=== PATIENT | male | born 1980 | race Caucasian/White ===

== ENCOUNTER 2017-10-01 14:42 | Inpatient (IN) | payer OTHER ==
[2017-10-01 16:54] VITALS: BMI 22.3
--- NOTE | 2017-10-01 19:39 | HP ---
COWS - Scale Resting Pulse: 0= [place] 80 or Below Sweatin=Flushed/Facial Moisture Restless Observation: 3= Extraneous Movement Pupil Size: 2= Moderately Dilated Bone or Joint Aches: 2= Severe Diffuse Aches Runny Nose/ Eye Tearin= Runny Nose/Eyes GI Upset > 30mins: 3= Vomiting/Diarrhea Tremor Observation: 2= Slight Tremor Visible Yawning Observation: 2= >3x During Session Anxiety or Irritability: 2=Irritable/Anxious Goose Flesh Skin: 0=Smooth Skin COWS Score: 20 CIWA Score - CIWA Score Nausea/Vomitin Muscle Tremors: 3 Anxiety: 3 Agitation: 3 Paroxysmal Sweats: 1-Minimal Palms Moist Orientation: 0-Oriented Tacttile Disturbances: 1-Very Mild Itch/Numbness Auditory Disturbances: 1-Very Mild Visual Disturbances: 0-None Headache: 2-Mild CIWA-Ar Total Score: 17 Admission ROS BHS - HPI Chief Complaint: i need help to stop using heroi,xanax,cocaine Allergies/Adverse Reactions: Allergies Allergy/AdvReac Type Severity Reaction Status Date / Time No Known Allergies Allergy Verified 10/01/17 18:41 History of Present Illness: this 37 years old male with heroin,xanax,cocaine dependence,seeking detox, withdrawal symptom,last treatment [facility] in 07/24 not completed nicotine dependence anxiety,depression,insomnia longest period of sobriety 7 years weight loss Exam Limitations: No Limitations - Ebola screening Have you been sick,other than usual withdrawal symptoms: No - Review of Systems Constitutional: Chills, Loss of Appetite, Malaise, Night Sweats, Changes in sleep, Weakness, Unintentional Wgt. Loss EENT: reports: Tearing, Nose Congestion Respiratory: reports: No Symptoms reported Cardiac: reports: No Symptoms Reported GI: reports: Diarrhea, Nausea, Vomiting, Abdominal cramping : reports: No Symptoms Reported Musculoskeletal: reports: Back Pain, Joint Pain, Muscle Pain, Joint Stiffness Integumentary: reports: Dryness Neuro: reports: Headache, Tremors Endocrine: reports: No Symptoms Reported Hematology: reports: No Symptoms Reported Psychiatric: reports: No Sypmtoms Reported, Judgement Intact, Mood/Affect Appropiate, Orientated x3, Anxious, Depressed Patient History - Patient Medical History Hx Anemia: No Hx Asthma: No Hx Chronic Obstructive Pulmonary Disease (COPD): No Hx Cancer: No Hx Cardiac Disorders: No Hx Hypertension: No Hx Hypercholesterolemia: No Hx Pacemaker: No HX Cerebrovascular Accident: No Hx Seizures: No Hx Diabetes: No Hx Gastrointestinal Disorders: No Hx Liver Disease: No Hx Genitourinary Disorders: No Hx Sexually Transmitted Disorders: No Hx Renal Disease (ESRD): No Hx Thyroid Disease: No Hx Human Immunodeficiency Virus (HIV): No (last 2017 negative) Hx Hepatitis C: No Hx Depression: Yes (anxiety) Hx Suicide Attempt: No Hx Bipolar Disorder: No Hx Schizophrenia: No Other Medical History: no suicidal,no homicidal - Patient Surgical History Past Surgical History: No Hx Neurologic Surgery: No Hx Cataract Extraction: No Hx Cardiac Surgery: No Hx Lung Surgery: No Hx Breast Surgery: No Hx Breast Biopsy: No Hx Abdominal Surgery: No Hx Appendectomy: No Hx Cholecystectomy: No Hx Genitourinary Surgery: No Hx Section: No Hx Orthopedic Surgery: No Anesthesia Reaction: No - PPD History Previous Implant?: Yes Documented Results: Negative w/o proof Implanted On Prior R Admission?: No PPD to be Administered?: Yes - Smoking Cessation Smoking history: Current every day smoker Have you smoked in the past 12 months: Yes Aproximately how many cigarettes per day: 20 Hx Chewing Tobacco Use: No Initiated information on smoking cessation: Yes 'Breaking Loose' booklet given: 10/01/17 - Substance & Tx. History Hx Alcohol Use: No Hx Substance Use: Yes Substance Use Type: Cocaine, Heroin, Tranquilizers - Substances Abused Heroin Route: Injection Frequency: Daily Amount used: 10 BAGS DAILY Age of first use: 23 Date of Last Use: 10/01/17 Cocaine Route: Injection Frequency: Daily Amount used: 10 BAGS DAILY Age of first use: 23 Date of Last Use: 10/01/17 Alprazolam (Xanax) Route: Oral Frequency: 3-6 times per week Amount used: 2 MG Age of first use: 27 Date of Last Use: 10/01/17 Family Disease History - Family Disease History Family History: Denies Admission Physical Exam BHS - Vital Signs Vital Signs: Vital Signs - 24 hr 10/01/17 16:52 Temperature 98.6 F Pulse Rate 74 Respiratory 18 Rate Blood Pressure 115/73 - Physical General Appearance: Yes: Moderate Distress, Irritable, Sweating, Anxious HEENTM: Yes: Normal ENT Inspection, FRANC[place], Pharynx Normal Respiratory: Yes: Within Normal Limits, Lungs Clear, Normal Breath Sounds Neck: Yes: Within Normal Limits Breast: Yes: Within Normal Limits Cardiology: Yes: Within Normal Limits, Regular Rhythm, Regular Rate, S1, S2 Abdominal: Yes: Within Normal Limits, Normal Bowel Sounds, Non Tender, Soft Genitourinary: Yes: Within Normal Limits Back: Yes: Within Normal Limits, Normal Inspection, Muscle Spasm Musculoskeletal: Yes: full range of Motion, Back pain, Muscle Pain Extremities: Yes: Within Normal Limits, Normal Range of Motion, Tremors Neurological: Yes: Within Normal Limits, 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 intact, Fully Oriented, Alert, Motor Strength 5/5 Integumentary: Yes: Dry, Track Petersen (tattooes), Other (cellulitis left leg) Lymphatic: Yes: Within Normal Limits - Diagnostic (1) Opioid dependence with withdrawal Current Visit: Yes Status: Acute (2) Cocaine dependence Current Visit: Yes Status: Chronic (3) Uncomplicated sedative, hypnotic or anxiolytic withdrawal Current Visit: Yes Status: Acute (4) Weight loss Current Visit: Yes Status: Acute (5) Nicotine dependence Current Visit: Yes Status: Chronic (6) Insomnia secondary to depression with anxiety Current Visit: Yes Status: Acute (7) Cellulitis of left leg Current Visit: Yes Status: Acute Cleared for Admission [facility] - Detox or Rehab [facility] Level of Care: Medically Managed Detox Regimen/Protocol: Methadone [facility] Breath Alcohol Content Breath Alcohol Content: 0 Urine Drug Screen - Results Drug Screen Negative: No Urine Drug Screen Results: THC-Marijuana, HERMINIA-Cocaine, OPI-Opiates, MTD- Methadone
[2017-10-01] MEDS ORDERED: IBUPROFEN 400 MG TABLET (FP) PO PRN (19:50)
[2017-10-01] MEDS ORDERED: hydrOXYzine PAMOATE 50 MG CAPSULE (FP) PO PRN (19:50)
[2017-10-01] MEDS ORDERED: P-EPHED 60MG/TRIPROLIDI 2.5MG TABLET PO PRN (19:50)
[2017-10-01] MEDS ORDERED: MAGNESIUM CITRATE 300 ML BOTTLE PO PRN (19:50)
[2017-10-01] MEDS ORDERED: METHADONE HCL 10 MG TABLET (FOR DETOX USE ONLY) PO ONE ×2 (19:50→23:00)
[2017-10-01] MEDS ORDERED: guaiFENesin/D-METHORPHAN HB 10 ML UNIT-DOSE CUPS PO PRN (19:50)
[2017-10-01] MEDS ORDERED: MAG HYDROX/AL HYDROX/SIMETH 30 ML UNIT-DOSE CUP PO PRN (19:50)
[2017-10-01] MEDS ORDERED: LOPERAMIDE HCL 2 MG CAPSULE PO PRN (19:50)
[2017-10-01] MEDS ORDERED: MAGNESIUM HYDROX 2400MG/30ML ORAL SUSPENSION 30 ML CUP PO PRN (19:50)
[2017-10-01] MEDS ORDERED: ACETAMINOPHEN 325 MG TABLET (FP) PO PRN (19:50)
[2017-10-01] MEDS ORDERED: MENTHOL/PHENOL 1 EACH UD MM PRN (19:50)
[2017-10-01] MEDS: SULFAMETHOXAZOLE/TRIMETHOPRIM 800MG/160MG D.S. TABLET PO SCH (21:12)
[2017-10-01] MEDS: diazePAM 5 MG TABLET PO PRN (21:12)
[2017-10-01] MEDS: THIAMINE HCL 100 MG TABLET (FP) PO SCH (21:12)
[2017-10-01] MEDS ORDERED: MELATONIN 5 MG TABLETS PO PRN (22:00)
[2017-10-01 22:37] LABS: URINE APPEARANCE SLCLOUDY; URINE COLOR AMBER; URINE GLUCOSE (UA) NEGATIVE (NEGATIVE); URINE KETONE 1+ (NEGATIVE); URINE LEUK ESTERASE NEGATIVE (NEGATIVE); URINE NITRITE NEGATIVE (NEGATIVE); URINE UROBILINOGEN 4.0 E.U/dl mg/dL (0.2-1.0)
[2017-10-01 22:39] LABS: URINE PROTEIN 1+ (NEGATIVE)
[2017-10-01 23:09] LABS: URINE BACTERIA MODERATE /hpf (NONE SEEN); URINE MUCUS MANY
[2017-10-02] MEDS: diazePAM 5 MG TABLET PO PRN ×3 (07:33→22:21)
[2017-10-02 09:26] LABS: HEMOGLOBIN 11.7 GM/dL (11.7-16.9); MCH 27.7 pg (25.7-33.7); MCHC 32.5 g/dl (32.0-35.9); MEAN CELL VOLUME 85.1 fl (80-96); MEAN PLT VOLUME 8.2 fl (7.5-11.1); PLATELET COUNT 256 K/MM3 (134-434); RBC 4.23 M/mm3 (4.00-5.60); RDW 14.6 % (11.9-15.9); WHITE BLOOD COUNT 4.2 K/mm3 (4.0-10.0)
[2017-10-02] MEDS: PRENATAL VITAMINS W/ FOLIC ACID TABLET (FP) PO SCH (09:30)
[2017-10-02] MEDS: SULFAMETHOXAZOLE/TRIMETHOPRIM 800MG/160MG D.S. TABLET PO SCH ×2 (09:32→22:21)
[2017-10-02 09:42] LABS: CHLORIDE 106 mmol/L (98-107); POTASSIUM 3.9 mmol/L (3.5-5.1); SODIUM 141 mmol/L (136-145)
[2017-10-02 09:54] LABS: ALBUMIN 3.3 g/dl (3.4-5.0); ALK PHOS 82 U/L (45-117); ANION GAP 6 (8-16); BILIRUBIN,TOTAL 0.4 mg/dL (0.2-1.0); BLOOD UREA NITROGEN 13 mg/dL (7-18); CALCIUM 8.6 mg/dL (8.5-10.1); CO2 29 mmol/L (21-32); CREATININE 0.8 mg/dL (0.7-1.3); GLUCOSE,RANDOM 88 mg/dL (74-106); SGOT/AST 20 U/L (15-37); SGPT/ALT 19 U/L (12-78)
[2017-10-02] MEDS ORDERED: METHADONE HCL 10 MG TABLET (FOR DETOX USE ONLY) PO ONE (10:00)
--- NOTE | 2017-10-02 10:06 | EKG ---
Test Reason : Blood Pressure : / mmHG Vent. Rate : 065 BPM Atrial Rate : 065 BPM P-R Int : 138 ms QRS Dur : 088 ms QT Int : 426 ms P-R-T Axes : 060 065 044 degrees QTc Int : 443 ms NORMAL SINUS RHYTHM NORMAL ECG NO PREVIOUS ECGS AVAILABLE Confirmed by ADDIE CURTIS, IRAIDA ([id number]) on 10/02/2017 10:05:50 AM Referred By: Fredy Lacy Confirmed By:IRAIDA REAL MD
--- NOTE | 2017-10-02 17:14 | PN ---
BHS COWS - Scale Resting Pulse: 0= [place] 80 or Below Sweatin= Chills/Flushing Restless Observation: 3= Extraneous Movement Pupil Size: 1= Pupils >than Normal Bone or Joint Aches: 2= Severe Diffuse Aches Runny Nose/ Eye Tearin= Runny Nose/Eyes GI Upset > 30mins: 2= Nausea/Diarrhea Tremor Observation of Outstretched Hands: 2= Slight Tremor Visible Yawning Observation: 1= 1-2x During Session Anxiety or Irritability: 2=Irritable/Anxious Goose Flesh Skin: 0=Smooth Skin COWS Score: 16 S Progress Note (SOAP) Subjective: Sweating, tremor, chills, anxious Objective: 10/02/17 17:10 Last Vital Signs Temp Pulse Resp BP Pulse Ox 98.2 F 66 18 111/51 10/02/17 15:00 10/02/17 15:00 10/02/17 15:00 10/02/17 15:00 Laboratory Tests 10/01/17 10/02/17 10/02/17 22:20 07:45 07:45 WBC 4.2 RBC 4.23 Hgb 11.7 Hct 36.0 MCV 85.1 MCH 27.7 MCHC 32.5 RDW 14.6 Plt Count 256 MPV 8.2 Sodium 141 Potassium 3.9 Chloride 106 Carbon Dioxide 29 Anion Gap 6 L BUN 13 Creatinine 0.8 Creat Clearance w eGFR > 60 Random Glucose 88 Calcium 8.6 Total Bilirubin 0.4 AST 20 ALT 19 Alkaline Phosphatase 82 Total Protein 7.0 Albumin 3.3 L Urine Color [place] Urine Appearance Slcloudy Urine pH 5.0 Ur Specific [place] 1.033 Urine Protein 1+ H Urine Glucose (UA) Negative Urine Ketones 1+ H Urine Blood Negative Urine Nitrite Negative Urine Bilirubin 2.0 Urine Urobilinogen 4.0 e.u/dl Ur Leukocyte Esterase Negative Urine WBC (Auto) 2 Urine RBC (Auto) 10 Urine Bacteria Moderate Urine Mucus Many RPR Titer HIV 1&2 Antibody Screen HIV P24 Antigen 10/02/17 10/02/17 07:45 07:45 WBC RBC Hgb Hct MCV MCH MCHC RDW Plt Count MPV Sodium Potassium Chloride Carbon Dioxide Anion Gap BUN Creatinine Creat Clearance w eGFR Random Glucose Calcium Total Bilirubin AST ALT Alkaline Phosphatase Total Protein Albumin Urine Color Urine Appearance Urine pH Ur Specific [place] Urine Protein Urine Glucose (UA) Urine Ketones Urine Blood Urine Nitrite Urine Bilirubin Urine Urobilinogen Ur Leukocyte Esterase Urine WBC (Auto) Urine RBC (Auto) Urine Bacteria Urine Mucus RPR Titer Nonreactive HIV 1&2 Antibody Screen Negative HIV P24 Antigen Negative Labs reviewed: UA abnormal Assessment: 10/02/17 17:12 Withdrawal symptoms Noted with abnormal UA Plan: Continue detox Abnormal UA: encouraged PO water hydration, repeat UA
[2017-10-02] MEDS: THIAMINE HCL 100 MG TABLET (FP) PO SCH (22:21)
[2017-10-03] MEDS: diazePAM 5 MG TABLET PO PRN ×3 (07:19→22:20)
[2017-10-03] MEDS ORDERED: METHADONE HCL 5 MG TABLET (FOR DETOX USE ONLY) PO ONE (10:00)
[2017-10-03] MEDS: PRENATAL VITAMINS W/ FOLIC ACID TABLET (FP) PO SCH (10:27)
[2017-10-03] MEDS: SULFAMETHOXAZOLE/TRIMETHOPRIM 800MG/160MG D.S. TABLET PO SCH ×2 (10:27→22:19)
--- NOTE | 2017-10-03 17:48 | PN ---
S CIWA - CIWA Score Nausea/Vomitin Muscle Tremors: 3 Anxiety: 3 Agitation: 4-Moderately Restless Paroxysmal Sweats: 3 Orientation: 0-Oriented Tacttile Disturbances: 0-None Auditory Disturbances: 0-None Visual Disturbances: 0-None Headache: 0-None Present CIWA-Ar Total Score: 16 BHS Progress Note (SOAP) Subjective: sleep disturbance sweats shakes Objective: 10/03/17 17:47 A & O x 3 Anxious Vital Signs Temperature 98.1 F 10/03/17 14:15 Pulse Rate 77 10/03/17 14:15 Respiratory Rate 18 10/03/17 14:15 Blood Pressure 104/57 10/03/17 14:15 O2 Sat by Pulse Oximetry (%) Assessment: 10/03/17 17:47 withdrawal sx Plan: continue detox continue increased hydration UA in a.m
--- NOTE | 2017-10-03 17:55 | PN ---
BHS COWS - Scale Resting Pulse: 0= [place] 80 or Below Sweatin=Flushed/Facial Moisture Restless Observation: 3= Extraneous Movement Pupil Size: 0= Normal to Room Light Bone or Joint Aches: 1= Mild Discomfort Runny Nose/ Eye Tearin= Nasal Congestion GI Upset > 30mins: 0= None Tremor Observation of Outstretched Hands: 2= Slight Tremor Visible Yawning Observation: 0= None Anxiety or Irritability: 2=Irritable/Anxious Goose Flesh Skin: 0=Smooth Skin COWS Score: 11
[2017-10-03] MEDS: THIAMINE HCL 100 MG TABLET (FP) PO SCH (22:19)
[2017-10-04 09:14] VITALS: BP 111/73; PULSE 72; TEMP 98.1
[2017-10-04] MEDS: PRENATAL VITAMINS W/ FOLIC ACID TABLET (FP) PO SCH (09:33)
[2017-10-04] MEDS: diazePAM 5 MG TABLET PO PRN (09:33)
[2017-10-04] MEDS: SULFAMETHOXAZOLE/TRIMETHOPRIM 800MG/160MG D.S. TABLET PO SCH (09:33)
[2017-10-04] MEDS ORDERED: METHADONE HCL 5 MG TABLET (FOR DETOX USE ONLY) PO ONE (10:00)
--- NOTE | 2017-10-04 17:03 | PN ---
BHS Progress Note (SOAP) Subjective: PATIENT DECLINED TO SPEAK TO MEDICAL PROVIDER TODAY, STATING THAT HE IS LEAVING DETOX UNIT AMA. Objective: 10/04/17 17:03 Vital Signs Temperature 98.1 F 10/04/17 09:13 Pulse Rate 72 10/04/17 09:13 Respiratory Rate 16 10/04/17 09:13 Blood Pressure 111/73 10/04/17 09:13 O2 Sat by Pulse Oximetry (%) Laboratory Tests 10/01/17 10/02/17 10/02/17 22:20 07:45 07:45 WBC 4.2 RBC 4.23 Hgb 11.7 Hct 36.0 MCV 85.1 MCH 27.7 MCHC 32.5 RDW 14.6 Plt Count 256 MPV 8.2 Sodium 141 Potassium 3.9 Chloride 106 Carbon Dioxide 29 Anion Gap 6 L BUN 13 Creatinine 0.8 Creat Clearance w eGFR > 60 Random Glucose 88 Calcium 8.6 Total Bilirubin 0.4 AST 20 ALT 19 Alkaline Phosphatase 82 Total Protein 7.0 Albumin 3.3 L Urine Color [place] Urine Appearance Slcloudy Urine pH 5.0 Ur Specific [place] 1.033 Urine Protein 1+ H Urine Glucose (UA) Negative Urine Ketones 1+ H Urine Blood Negative Urine Nitrite Negative Urine Bilirubin 2.0 Urine Urobilinogen 4.0 e.u/dl Ur Leukocyte Esterase Negative Urine WBC (Auto) 2 Urine RBC (Auto) 10 Urine Bacteria Moderate Urine Mucus Many RPR Titer HIV 1&2 Antibody Screen HIV P24 Antigen 10/02/17 10/02/17 07:45 07:45 WBC RBC Hgb Hct MCV MCH MCHC RDW Plt Count MPV Sodium Potassium Chloride Carbon Dioxide Anion Gap BUN Creatinine Creat Clearance w eGFR Random Glucose Calcium Total Bilirubin AST ALT Alkaline Phosphatase Total Protein Albumin Urine Color Urine Appearance Urine pH Ur Specific [place] Urine Protein Urine Glucose (UA) Urine Ketones Urine Blood Urine Nitrite Urine Bilirubin Urine Urobilinogen Ur Leukocyte Esterase Urine WBC (Auto) Urine RBC (Auto) Urine Bacteria Urine Mucus RPR Titer Nonreactive HIV 1&2 Antibody Screen Negative HIV P24 Antigen Negative LABS NOTED. Assessment: 10/04/17 17:03 WITHDRAWAL SYMPTOMS. Plan: CONTINUE DETOX.
--- NOTE | 2017-10-04 17:09 | DS ---
[facility] Detox Discharge Summary Admission Date: 10/01/17 Discharge Date: 10/04/17 - History Present History: Alcohol Dependence, Cocaine Dependence, Sedative Dependence Additional Comments: PATIENT DOES NOT WISH TO STAY TO COMPLETE DETOX REGIMEN. PATIENT DECLINED TO SPEAK WITH MEDICAL PROVIDER AT ALL PRIOR TO LEAVING UNIT. Pertinent Past History: Depression, Nicotine Dependence, Weight Loss, Cellulitis of left leg, Insomnia, Anxiety. - Physical Exam Results Vital Signs: Vital Signs Temperature 98.1 F 10/04/17 09:13 Pulse Rate 72 10/04/17 09:13 Respiratory Rate 16 10/04/17 09:13 Blood Pressure 111/73 10/04/17 09:13 O2 Sat by Pulse Oximetry (%) Pertinent Admission Physical Exam Findings: WITHDRAWAL SYMPTOMS. Laboratory Tests 10/01/17 10/02/17 10/02/17 22:20 07:45 07:45 WBC 4.2 RBC 4.23 Hgb 11.7 Hct 36.0 MCV 85.1 MCH 27.7 MCHC 32.5 RDW 14.6 Plt Count 256 MPV 8.2 Sodium 141 Potassium 3.9 Chloride 106 Carbon Dioxide 29 Anion Gap 6 L BUN 13 Creatinine 0.8 Creat Clearance w eGFR > 60 Random Glucose 88 Calcium 8.6 Total Bilirubin 0.4 AST 20 ALT 19 Alkaline Phosphatase 82 Total Protein 7.0 Albumin 3.3 L Urine Color [place] Urine Appearance Slcloudy Urine pH 5.0 Ur Specific [place] 1.033 Urine Protein 1+ H Urine Glucose (UA) Negative Urine Ketones 1+ H Urine Blood Negative Urine Nitrite Negative Urine Bilirubin 2.0 Urine Urobilinogen 4.0 e.u/dl Ur Leukocyte Esterase Negative Urine WBC (Auto) 2 Urine RBC (Auto) 10 Urine Bacteria Moderate Urine Mucus Many RPR Titer HIV 1&2 Antibody Screen HIV P24 Antigen 10/02/17 10/02/17 07:45 07:45 WBC RBC Hgb Hct MCV MCH MCHC RDW Plt Count MPV Sodium Potassium Chloride Carbon Dioxide Anion Gap BUN Creatinine Creat Clearance w eGFR Random Glucose Calcium Total Bilirubin AST ALT Alkaline Phosphatase Total Protein Albumin Urine Color Urine Appearance Urine pH Ur Specific [place] Urine Protein Urine Glucose (UA) Urine Ketones Urine Blood Urine Nitrite Urine Bilirubin Urine Urobilinogen Ur Leukocyte Esterase Urine WBC (Auto) Urine RBC (Auto) Urine Bacteria Urine Mucus RPR Titer Nonreactive HIV 1&2 Antibody Screen Negative HIV P24 Antigen Negative LABS NOTED. - Treatment Hospital Course: Detoxed Safely - Medication Discharge Medications: Ambulatory Orders NK [No Known Home Medication] 10/01/17 - Diagnosis (1) Cellulitis of left leg Status: Acute (2) Insomnia secondary to depression with anxiety Status: Acute (3) Opioid dependence with withdrawal Status: Acute (4) Uncomplicated sedative, hypnotic or anxiolytic withdrawal Status: Acute (5) Weight loss Status: Acute (6) Cocaine dependence Status: Chronic Qualifiers: Substance use status: uncomplicated Qualified Code(s): F14.20 - Cocaine dependence, uncomplicated (7) Nicotine dependence Status: Chronic Qualifiers: Nicotine product type: cigarettes Substance use status: uncomplicated Qualified Code(s): F17.210 - Nicotine dependence, cigarettes, uncomplicated - AMA Did Patient Leave Against Medical Advice: Yes (PATIENT DID NOT WISH TO STAY TO COMPLETE DETOX REGIMEN.)
[2017-10-05] MEDS ORDERED: METHADONE HCL 10 MG TABLET (FOR DETOX USE ONLY) PO ONE (10:00)
[2017-10-06] MEDS ORDERED: METHADONE HCL 5 MG TABLET (FOR DETOX USE ONLY) PO ONE (06:00)
== END 2017-10-04 10:14 | disposition left against medical advice (07) | DRG 770 ==
LOC: YASAS 14:42 → Y3N 19:35
PROVIDERS: ADMIT Internal Medicine; ATTEND Internal Medicine
PROC: HZ2ZZZZ Detoxification Services for Substance Abuse Treatment (ICD-10-PCS; principal; 2017-10-01)
DX: F11.23 Opioid dependence with withdrawal (principal); F13.230 Sedative, hypnotic or anxiolytic dependence with withdrawal, uncomplicated; F14.20 Cocaine dependence, uncomplicated; F17.210 Nicotine dependence, cigarettes, uncomplicated; F51.05 Insomnia due to other mental disorder; L03.116 Cellulitis of left lower limb; R82.90 Unspecified abnormal findings in urine; R63.4 Abnormal weight loss; Z68.22 Body mass index [BMI] 22.0-22.9, adult
CPT/HCPCS: 36415; 80053; 81003; 81015; 85027; 86593; 87389; 93005; 93010

== ENCOUNTER 2018-05-28 12:10 | Inpatient (IN) | payer OTHER ==
[2018-05-28 12:36] VITALS: BMI 24.1
--- NOTE | 2018-05-28 13:45 | HP ---
CIWA Score Nausea/Vomitin-Mild Nausea/No Vomiting Muscle Tremors: 3 Anxiety: 2 Agitation: 2 Paroxysmal Sweats: 2 Orientation: 0-Oriented Tacttile Disturbances: 0-None Auditory Disturbances: 0-None Visual Disturbances: 0-None Headache: 2-Mild CIWA-Ar Total Score: 12 - Admission Criteria [facility] Guidelines: Admission for Medically Managed Detox: Requires at least one of the followin. CIWA greater than 12 2. Seizures within the past 24 hours 3. Delirium tremens within the past 24 hours 4. Hallucinations within the past 24 hours 5. Acute intervention needed for co occurring medical disorder 6. Acute intervention needed for co occurring psychiatric disorder 7. Severe withdrawal that cannot be handled at a lower level of care (continued vomiting, continued diarrhea, abnormal vital signs) requiring intravenous medication and/or fluids 8. Admission ROS BHS - HPI Chief Complaint: here for alcohol detox- 37 yo with HCV pos- cured, falling asleep- stating that he has not slept in many days. On methadone 70mg. Says he lost tomorrow's [place]ad[place]. Alcohol- 1 pint a day, no seizures or DT's Cocaine- IV 5 bags/day- uses legs for IV access heroin- IV 5 bags/day- uses legs for IV access marijuana 2 blunts a day Zanax- #5 2 mg pills/day DUR-librium 05/23 #8- pt does not recall where he got this. Utox: THC, cocaine, Met, Opi, MTD Allergies/Adverse Reactions: Allergies Allergy/AdvReac Type Severity Reaction Status Date / Time No Known Allergies Allergy Verified 05/28/18 12:56 - Ebola screening Have you traveled outside of the country in the last 21 days: Yes Have you had contact with anyone from an Ebola affected area: Yes Have you been sick,other than usual withdrawal symptoms: No Patient History - Patient Medical History Hx Anemia: No Hx Asthma: No Hx Chronic Obstructive Pulmonary Disease (COPD): No Hx Cancer: No Hx Cardiac Disorders: No Hx Hypertension: No Hx Hypercholesterolemia: No Hx Pacemaker: No HX Cerebrovascular Accident: No Hx Seizures: No Hx Diabetes: No Hx Gastrointestinal Disorders: No Hx Liver Disease: No Hx Genitourinary Disorders: No Hx Sexually Transmitted Disorders: No Hx Renal Disease (ESRD): No Hx Thyroid Disease: No Hx Human Immunodeficiency Virus (HIV): No (last 2017 negative) Hx Hepatitis C: No Hx Depression: Yes Hx Suicide Attempt: No Hx Bipolar Disorder: No Hx Schizophrenia: No - Patient Surgical History Past Surgical History: No Hx Neurologic Surgery: No Hx Cataract Extraction: No Hx Cardiac Surgery: No Hx Lung Surgery: No Hx Breast Surgery: No Hx Breast Biopsy: No Hx Abdominal Surgery: No Hx Appendectomy: No Hx Cholecystectomy: No Hx Genitourinary Surgery: No Hx Section: No Hx Orthopedic Surgery: No Anesthesia Reaction: No - PPD History Previous Implant?: Yes Documented Results: Negative w/proof Date: 10/03/17 Results: NEGATIVE - Smoking Cessation Smoking history: Current every day smoker Have you smoked in the past 12 months: Yes Aproximately how many cigarettes per day: 10 Hx Chewing Tobacco Use: No Initiated information on smoking cessation: Yes 'Breaking Loose' booklet given: 05/28/18 - Substances Abused Alcohol Route: Oral Frequency: 1-2 times per week Amount used: 2 8 [employer] Age of first use: 19 Date of Last Use: 05/27/18 Marijuana/Hashish Route: Smoking Frequency: Daily Amount used: $35 Age of first use: 22 Date of Last Use: 05/27/18 Alprazolam (Xanax) Route: Oral Frequency: Daily Amount used: 6MG Age of first use: 20 Date of Last Use: 05/27/18 Cocaine Route: Injection Frequency: Daily Amount used: 1 BUNDLE Age of first use: 20 Date of Last Use: 05/27/18 Heroin Route: Inhalation Frequency: 3-6 times per week Amount used: 1 BAG Age of first use: 19 Date of Last Use: 05/27/18 Family Disease History - Family Disease History Family Disease History: Diabetes: Mother, Heart Disease: Mother Admission Physical Exam BHS - Vital Signs Vital Signs: Vital Signs - 24 hr 05/28/18 12:34 Temperature 97.6 F Pulse Rate 73 Respiratory 18 Rate Blood Pressure 119/77 - Physical General Appearance: Yes: Within Normal Limits HEENTM: Yes: Within Normal Limits Respiratory: Yes: Within Normal Limits Neck: Yes: Within Normal Limits Breast: Yes: Breast Exam Deferred Cardiology: Yes: Within Normal Limits Abdominal: Yes: Within Normal Limits Genitourinary: Yes: Within Normal Limits Back: Yes: Within Normal Limits Musculoskeletal: Yes: Within Normal Limits Extremities: Yes: Other (active track albert on legs with dried blood) Neurological: Yes: Other (pt falling asleep during exam- states he did not get sleep) Integumentary: Yes: Track Albert (of legs, tattoos in arms) Lymphatic: Yes: Within Normal Limits - Diagnostic (1) Alcohol use disorder Current Visit: Yes Status: Acute (2) Opioid use disorder Current Visit: Yes Status: Acute (3) Cannabis use disorder, mild, abuse Current Visit: Yes Status: Acute (4) Cocaine dependence Current Visit: No Status: Chronic Qualifiers: Substance use status: uncomplicated Qualified Code(s): F14.20 - Cocaine dependence, uncomplicated (5) Nicotine dependence Current Visit: No Status: Chronic Qualifiers: Nicotine product type: cigarettes Substance use status: uncomplicated Qualified Code(s): F17.210 - Nicotine dependence, cigarettes, uncomplicated BHS Breath Alcohol Content Breath Alcohol Content: 0 Urine Drug Screen - Results Drug Screen Negative: No Urine Drug Screen Results: THC-Marijuana, HERMINIA-Cocaine, OPI-Opiates, MET- Methamphetamine, BZO-Benzodiazepines, MTD-Methadone
[2018-05-28] MEDS ORDERED: chlordiazePOXIDE HCL 25 MG CAPSULE PO PRN (16:07)
[2018-05-28] MEDS ORDERED: MAGNESIUM HYDROX 2400MG/30ML ORAL SUSPENSION 30 ML CUP PO PRN (16:08)
[2018-05-28] MEDS ORDERED: MAGNESIUM CITRATE 300 ML BOTTLE PO PRN (16:08)
[2018-05-28] MEDS ORDERED: IBUPROFEN 400 MG TABLET (FP) PO PRN (16:08)
[2018-05-28] MEDS ORDERED: ACETAMINOPHEN 325 MG TABLET (FP) PO PRN (16:08)
[2018-05-28] MEDS ORDERED: MENTHOL/PHENOL 1 EACH UD MM PRN (16:08)
[2018-05-28] MEDS ORDERED: guaiFENesin/D-METHORPHAN HB 10 ML UNIT-DOSE CUPS PO PRN (16:08)
[2018-05-28] MEDS ORDERED: LOPERAMIDE HCL 2 MG CAPSULE PO PRN (16:08)
[2018-05-28] MEDS ORDERED: P-EPHED 60MG/TRIPROLIDI 2.5MG TABLET PO PRN (16:08)
[2018-05-28] MEDS ORDERED: hydrOXYzine PAMOATE 25 MG CAPSULE (FP) PO PRN (16:08)
[2018-05-28] MEDS ORDERED: NICOTINE POLACRILEX 2 MG GUM BC PRN (16:08)
[2018-05-28] MEDS ORDERED: MAG HYDROX/AL HYDROX/SIMETH 30 ML UNIT-DOSE CUP PO PRN (16:08)
[2018-05-28] MEDS: chlordiazePOXIDE HCL 25 MG CAPSULE PO SCH ×2 (17:28→22:10)
[2018-05-28] MEDS ORDERED: MELATONIN 5 MG TABLETS PO PRN (22:00)
[2018-05-28] MEDS: THIAMINE HCL 100 MG TABLET (FP) PO SCH (22:10)
[2018-05-29] MEDS ORDERED: METHADONE HCL 10 MG TABLET PO ONE (06:00)
[2018-05-29] MEDS: chlordiazePOXIDE HCL 25 MG CAPSULE PO SCH ×2 (07:18→10:22)
[2018-05-29 10:08] LABS: HEMATOCRIT 35.3 % (35.4-49); HEMOGLOBIN 11.8 GM/dL (11.7-16.9); MCHC 33.3 g/dl (32.0-35.9); MEAN PLT VOLUME 7.6 fl (7.5-11.1); PLATELET COUNT 387 K/MM3 (134-434); RBC 4.06 M/mm3 (4.00-5.60); RDW 17.7 % (11.9-15.9); WHITE BLOOD COUNT 5.5 K/mm3 (4.0-10.0)
[2018-05-29] MEDS: PRENATAL VITAMINS W/ FOLIC ACID TABLET (FP) PO SCH (10:22)
[2018-05-29 10:25] LABS: ALBUMIN 3.6 g/dl (3.4-5.0); ALK PHOS 77 U/L (45-117); ANION GAP 7 MMOL/L (8-16); BILIRUBIN,TOTAL 1.1 mg/dL (0.2-1); BLOOD UREA NITROGEN 17 mg/dL (7-18); CHLORIDE 107 mmol/L (98-107); CO2 27 mmol/L (21-32); CREATININE 0.9 mg/dL (0.55-1.3); GLUCOSE,RANDOM 126 mg/dL (74-106); POTASSIUM 4.3 mmol/L (3.5-5.1); SGOT/AST 25 U/L (15-37); SGPT/ALT 19 U/L (13-61); SODIUM 140 mmol/L (136-145); TOT PROT 7.5 g/dl (6.4-8.2)
--- NOTE | 2018-05-29 11:29 | PN ---
S CIWA - CIWA Score Nausea/Vomitin-Mild Nausea/No Vomiting Muscle Tremors: 3 Anxiety: 3 Agitation: 3 Paroxysmal Sweats: 1-Minimal Palms Moist Orientation: 1-Uncertain about Date Tacttile Disturbances: 0-None Auditory Disturbances: 1-Very Mild Visual Disturbances: 0-None Headache: 1-Very Mild CIWA-Ar Total Score: 14 S Progress Note (SOAP) Subjective: tremor sweating anxiety restlessness Objective: 05/29/18 11:28 Vital Signs Temperature 98.4 F 05/29/18 09:10 Pulse Rate 69 05/29/18 09:10 Respiratory Rate 18 05/29/18 09:10 Blood Pressure 102/60 05/29/18 09:10 O2 Sat by Pulse Oximetry (%) Laboratory Last Values WBC 5.5 K/mm3 (4.0-10.0) 05/29/18 08:50 RBC 4.06 M/mm3 (4.00-5.60) 05/29/18 08:50 Hgb 11.8 GM/dL (11.7-16.9) 05/29/18 08:50 Hct 35.3 % (35.4-49) L 05/29/18 08:50 MCV 87.0 fl (80-96) 05/29/18 08:50 MCH 29.0 pg (25.7-33.7) 05/29/18 08:50 MCHC 33.3 g/dl (32.0-35.9) 05/29/18 08:50 RDW 17.7 % (11.9-15.9) H 05/29/18 08:50 Plt Count 387 K/MM3 (134-434) D 05/29/18 08:50 MPV 7.6 fl (7.5-11.1) 05/29/18 08:50 Sodium 140 mmol/L (136-145) 05/29/18 08:50 Potassium 4.3 mmol/L (3.5-5.1) 05/29/18 08:50 Chloride 107 mmol/L (98-107) 05/29/18 08:50 Carbon Dioxide 27 mmol/L (21-32) 05/29/18 08:50 Anion Gap 7 MMOL/L (8-16) L 05/29/18 08:50 BUN 17 mg/dL (7-18) 05/29/18 08:50 Creatinine 0.9 mg/dL (0.55-1.3) 05/29/18 08:50 Creat Clearance w eGFR > 60 (>60) 05/29/18 08:50 Random Glucose 126 mg/dL (74-106) H 05/29/18 08:50 Calcium 9.0 mg/dL (8.5-10.1) 05/29/18 08:50 Total Bilirubin 1.1 mg/dL (0.2-1) H 05/29/18 08:50 AST 25 U/L (15-37) 05/29/18 08:50 ALT 19 U/L (13-61) 05/29/18 08:50 Alkaline Phosphatase 77 U/L (45-117) 05/29/18 08:50 Total Protein 7.5 g/dl (6.4-8.2) 05/29/18 08:50 Albumin 3.6 g/dl (3.4-5.0) 05/29/18 08:50 lab noted Assessment: 05/29/18 11:29 withdrawal sx Plan: continue detox
[2018-05-29] MEDS ORDERED: chlordiazePOXIDE HCL 25 MG CAPSULE PO SCH (17:00)
[2018-05-29] MEDS: chlordiazePOXIDE 5 MG CAPSULE PO SCH ×2 (17:15→22:18)
[2018-05-29 21:40] LABS: URINE APPEARANCE SLCLOUDY; URINE BILIRUBIN NEGATIVE (<2.0 mg/dL); URINE COLOR YELLOW; URINE GLUCOSE (UA) NEGATIVE (NEGATIVE); URINE KETONE NEGATIVE (NEGATIVE); URINE LEUK ESTERASE NEGATIVE (NEGATIVE); URINE NITRITE NEGATIVE (NEGATIVE); URINE PROTEIN NEGATIVE (NEGATIVE); URINE UROBILINOGEN 4.0 E.U/dl mg/dL (0.2-1.0)
[2018-05-29] MEDS: THIAMINE HCL 100 MG TABLET (FP) PO SCH (22:18)
[2018-05-30] MEDS: chlordiazePOXIDE 5 MG CAPSULE PO SCH ×2 (06:16→10:31)
[2018-05-30] MEDS ORDERED: METHADONE HCL 10 MG TABLET PO SCH (07:45)
[2018-05-30] MEDS ORDERED: METHADONE HCL 40 MG DISPERSABLE TABLET ONE (08:33)
[2018-05-30] MEDS ORDERED: METHADONE HCL 10 MG TABLET ONE (08:33)
[2018-05-30] MEDS: METHADONE 40 MG, METHADONE 30 MG PO SCH (08:58)
[2018-05-30] MEDS: PRENATAL VITAMINS W/ FOLIC ACID TABLET (FP) PO SCH (10:30)
--- NOTE | 2018-05-30 11:29 | PN ---
S CIWA - CIWA Score Nausea/Vomitin-Mild Nausea/No Vomiting Muscle Tremors: 3 Anxiety: 2 Agitation: 1-Slight > Activity Paroxysmal Sweats: 1-Minimal Palms Moist Orientation: 1-Uncertain about Date Tacttile Disturbances: 0-None Auditory Disturbances: 0-None Visual Disturbances: 0-None Headache: 1-Very Mild CIWA-Ar Total Score: 10 S Progress Note (SOAP) Subjective: feeling better today that received 70 mg of methadone today tremor sweating Objective: 05/30/18 11:28 Vital Signs Temperature 98.5 F 05/30/18 09:27 Pulse Rate 88 05/30/18 09:27 Respiratory Rate 20 05/30/18 09:27 Blood Pressure 113/74 05/30/18 09:27 O2 Sat by Pulse Oximetry (%) Laboratory Last Values WBC 5.5 K/mm3 (4.0-10.0) 05/29/18 08:50 RBC 4.06 M/mm3 (4.00-5.60) 05/29/18 08:50 Hgb 11.8 GM/dL (11.7-16.9) 05/29/18 08:50 Hct 35.3 % (35.4-49) L 05/29/18 08:50 MCV 87.0 fl (80-96) 05/29/18 08:50 MCH 29.0 pg (25.7-33.7) 05/29/18 08:50 MCHC 33.3 g/dl (32.0-35.9) 05/29/18 08:50 RDW 17.7 % (11.9-15.9) H 05/29/18 08:50 Plt Count 387 K/MM3 (134-434) D 05/29/18 08:50 MPV 7.6 fl (7.5-11.1) 05/29/18 08:50 Sodium 140 mmol/L (136-145) 05/29/18 08:50 Potassium 4.3 mmol/L (3.5-5.1) 05/29/18 08:50 Chloride 107 mmol/L (98-107) 05/29/18 08:50 Carbon Dioxide 27 mmol/L (21-32) 05/29/18 08:50 Anion Gap 7 MMOL/L (8-16) L 05/29/18 08:50 BUN 17 mg/dL (7-18) 05/29/18 08:50 Creatinine 0.9 mg/dL (0.55-1.3) 05/29/18 08:50 Creat Clearance w eGFR > 60 (>60) 05/29/18 08:50 Random Glucose 126 mg/dL (74-106) H 05/29/18 08:50 Calcium 9.0 mg/dL (8.5-10.1) 05/29/18 08:50 Total Bilirubin 1.1 mg/dL (0.2-1) H 05/29/18 08:50 AST 25 U/L (15-37) 05/29/18 08:50 ALT 19 U/L (13-61) 05/29/18 08:50 Alkaline Phosphatase 77 U/L (45-117) 05/29/18 08:50 Total Protein 7.5 g/dl (6.4-8.2) 05/29/18 08:50 Albumin 3.6 g/dl (3.4-5.0) 05/29/18 08:50 Urine Color Yellow 05/29/18 17:51 Urine Appearance Slcloudy 05/29/18 17:51 Urine pH 7.0 (5.0-8.0) D 05/29/18 17:51 Ur Specific [place] 1.015 (1.010-1.035) 05/29/18 17:51 Urine Protein Negative (NEGATIVE) 05/29/18 17:51 Urine Glucose (UA) Negative (NEGATIVE) 05/29/18 17:51 Urine Ketones Negative (NEGATIVE) 05/29/18 17:51 Urine Blood Negative (NEGATIVE) 05/29/18 17:51 Urine Nitrite Negative (NEGATIVE) 05/29/18 17:51 Urine Bilirubin Negative (<2.0 mg/dL) 05/29/18 17:51 Urine Urobilinogen 4.0 e.u/dl mg/dL (0.2-1.0) 05/29/18 17:51 Ur Leukocyte Esterase Negative (NEGATIVE) 05/29/18 17:51 RPR Titer Nonreactive (NONREACTIVE) 05/29/18 08:50 lab noted Assessment: 05/30/18 11:29 withdrawal sx Plan: continue detox
[2018-05-30] MEDS: chlordiazePOXIDE HCL 10 MG CAPSULE PO SCH ×2 (18:06→22:10)
[2018-05-30] MEDS: THIAMINE HCL 100 MG TABLET (FP) PO SCH (22:10)
[2018-05-31] MEDS ORDERED: METHADONE HCL 40 MG DISPERSABLE TABLET ONE (05:00)
[2018-05-31] MEDS ORDERED: METHADONE HCL 10 MG TABLET ONE (05:00)
[2018-05-31] MEDS: METHADONE 40 MG, METHADONE 30 MG PO SCH (05:47)
[2018-05-31] MEDS: chlordiazePOXIDE HCL 10 MG CAPSULE PO SCH ×2 (07:37→10:26)
[2018-05-31] MEDS: PRENATAL VITAMINS W/ FOLIC ACID TABLET (FP) PO SCH (10:26)
--- NOTE | 2018-05-31 11:32 | PN ---
[facility] Progress Note (SOAP) Subjective: feeling better less tremor mild sweating discuss aftercare with staff Objective: 05/31/18 11:31 Vital Signs Temperature 96.9 F L 05/31/18 09:09 Pulse Rate 60 05/31/18 09:09 Respiratory Rate 18 05/31/18 09:09 Blood Pressure 101/65 05/31/18 09:09 O2 Sat by Pulse Oximetry (%) Laboratory Last Values WBC 5.5 K/mm3 (4.0-10.0) 05/29/18 08:50 RBC 4.06 M/mm3 (4.00-5.60) 05/29/18 08:50 Hgb 11.8 GM/dL (11.7-16.9) 05/29/18 08:50 Hct 35.3 % (35.4-49) L 05/29/18 08:50 MCV 87.0 fl (80-96) 05/29/18 08:50 MCH 29.0 pg (25.7-33.7) 05/29/18 08:50 MCHC 33.3 g/dl (32.0-35.9) 05/29/18 08:50 RDW 17.7 % (11.9-15.9) H 05/29/18 08:50 Plt Count 387 K/MM3 (134-434) D 05/29/18 08:50 MPV 7.6 fl (7.5-11.1) 05/29/18 08:50 Sodium 140 mmol/L (136-145) 05/29/18 08:50 Potassium 4.3 mmol/L (3.5-5.1) 05/29/18 08:50 Chloride 107 mmol/L (98-107) 05/29/18 08:50 Carbon Dioxide 27 mmol/L (21-32) 05/29/18 08:50 Anion Gap 7 MMOL/L (8-16) L 05/29/18 08:50 BUN 17 mg/dL (7-18) 05/29/18 08:50 Creatinine 0.9 mg/dL (0.55-1.3) 05/29/18 08:50 Creat Clearance w eGFR > 60 (>60) 05/29/18 08:50 Random Glucose 126 mg/dL (74-106) H 05/29/18 08:50 Calcium 9.0 mg/dL (8.5-10.1) 05/29/18 08:50 Total Bilirubin 1.1 mg/dL (0.2-1) H 05/29/18 08:50 AST 25 U/L (15-37) 05/29/18 08:50 ALT 19 U/L (13-61) 05/29/18 08:50 Alkaline Phosphatase 77 U/L (45-117) 05/29/18 08:50 Total Protein 7.5 g/dl (6.4-8.2) 05/29/18 08:50 Albumin 3.6 g/dl (3.4-5.0) 05/29/18 08:50 Urine Color Yellow 05/29/18 17:51 Urine Appearance Slcloudy 05/29/18 17:51 Urine pH 7.0 (5.0-8.0) D 05/29/18 17:51 Ur Specific [place] 1.015 (1.010-1.035) 05/29/18 17:51 Urine Protein Negative (NEGATIVE) 05/29/18 17:51 Urine Glucose (UA) Negative (NEGATIVE) 05/29/18 17:51 Urine Ketones Negative (NEGATIVE) 05/29/18 17:51 Urine Blood Negative (NEGATIVE) 05/29/18 17:51 Urine Nitrite Negative (NEGATIVE) 05/29/18 17:51 Urine Bilirubin Negative (<2.0 mg/dL) 05/29/18 17:51 Urine Urobilinogen 4.0 e.u/dl mg/dL (0.2-1.0) 05/29/18 17:51 Ur Leukocyte Esterase Negative (NEGATIVE) 05/29/18 17:51 RPR Titer Nonreactive (NONREACTIVE) 05/29/18 08:50 lab noted Assessment: 05/31/18 11:32 mild withdrawal sx Plan: continue detox
[2018-05-31] MEDS: chlordiazePOXIDE 5 MG CAPSULE PO SCH ×2 (17:21→23:15)
[2018-05-31] MEDS: THIAMINE HCL 100 MG TABLET (FP) PO SCH (23:15)
[2018-06-01] MEDS ORDERED: METHADONE HCL 10 MG TABLET ONE (05:30)
[2018-06-01] MEDS ORDERED: METHADONE HCL 40 MG DISPERSABLE TABLET ONE (05:30)
[2018-06-01] MEDS: METHADONE 40 MG, METHADONE 30 MG PO SCH (05:30)
[2018-06-01] MEDS: chlordiazePOXIDE 5 MG CAPSULE PO SCH (05:31)
[2018-06-01 09:13] VITALS: BP 124/79; PULSE 76; TEMP 98.6
--- NOTE | 2018-06-01 10:35 | DS ---
[facility] Detox Discharge Summary Admission Date: 05/28/18 Discharge Date: 06/01/18 - History Present History: Alcohol Dependence Additional Comments: 37 years old male admitted on 05/28/18 for alcohol withdrawal stabilization completed detox regimen aftercare Dr. Ta Pertinent Past History: patient agrees return to methadone program for medical mental and addiction issue - Physical Exam Results Vital Signs: Vital Signs Temperature 98.6 F 06/01/18 09:10 Pulse Rate 76 06/01/18 09:10 Respiratory Rate 18 06/01/18 09:10 Blood Pressure 124/79 06/01/18 09:10 O2 Sat by Pulse Oximetry (%) Pertinent Admission Physical Exam Findings: alcohol withdrawal sx Laboratory Last Values WBC 5.5 K/mm3 (4.0-10.0) 05/29/18 08:50 RBC 4.06 M/mm3 (4.00-5.60) 05/29/18 08:50 Hgb 11.8 GM/dL (11.7-16.9) 05/29/18 08:50 Hct 35.3 % (35.4-49) L 05/29/18 08:50 MCV 87.0 fl (80-96) 05/29/18 08:50 MCH 29.0 pg (25.7-33.7) 05/29/18 08:50 MCHC 33.3 g/dl (32.0-35.9) 05/29/18 08:50 RDW 17.7 % (11.9-15.9) H 05/29/18 08:50 Plt Count 387 K/MM3 (134-434) D 05/29/18 08:50 MPV 7.6 fl (7.5-11.1) 05/29/18 08:50 Sodium 140 mmol/L (136-145) 05/29/18 08:50 Potassium 4.3 mmol/L (3.5-5.1) 05/29/18 08:50 Chloride 107 mmol/L (98-107) 05/29/18 08:50 Carbon Dioxide 27 mmol/L (21-32) 05/29/18 08:50 Anion Gap 7 MMOL/L (8-16) L 05/29/18 08:50 BUN 17 mg/dL (7-18) 05/29/18 08:50 Creatinine 0.9 mg/dL (0.55-1.3) 05/29/18 08:50 Creat Clearance w eGFR > 60 (>60) 05/29/18 08:50 Random Glucose 126 mg/dL (74-106) H 05/29/18 08:50 Calcium 9.0 mg/dL (8.5-10.1) 05/29/18 08:50 Total Bilirubin 1.1 mg/dL (0.2-1) H 05/29/18 08:50 AST 25 U/L (15-37) 05/29/18 08:50 ALT 19 U/L (13-61) 05/29/18 08:50 Alkaline Phosphatase 77 U/L (45-117) 05/29/18 08:50 Total Protein 7.5 g/dl (6.4-8.2) 05/29/18 08:50 Albumin 3.6 g/dl (3.4-5.0) 05/29/18 08:50 Urine Color Yellow 05/29/18 17:51 Urine Appearance Slcloudy 05/29/18 17:51 Urine pH 7.0 (5.0-8.0) D 05/29/18 17:51 Ur Specific [place] 1.015 (1.010-1.035) 05/29/18 17:51 Urine Protein Negative (NEGATIVE) 05/29/18 17:51 Urine Glucose (UA) Negative (NEGATIVE) 05/29/18 17:51 Urine Ketones Negative (NEGATIVE) 05/29/18 17:51 Urine Blood Negative (NEGATIVE) 05/29/18 17:51 Urine Nitrite Negative (NEGATIVE) 05/29/18 17:51 Urine Bilirubin Negative (<2.0 mg/dL) 05/29/18 17:51 Urine Urobilinogen 4.0 e.u/dl mg/dL (0.2-1.0) 05/29/18 17:51 Ur Leukocyte Esterase Negative (NEGATIVE) 05/29/18 17:51 RPR Titer Nonreactive (NONREACTIVE) 05/29/18 08:50 lab noted - Treatment Hospital Course: Detox Protocol Followed, Detoxed Safely, Responded well, Discharged Condition Good, Rehab Referral Accepted - Medication Discharge Medications: Ambulatory Orders Methadone [Dolophine -] 70 mg PO DAILY 05/30/18 - Diagnosis (1) Alcohol dependence with uncomplicated withdrawal Current Visit: Yes Status: Acute (2) Methadone maintenance therapy patient Current Visit: Yes Status: Chronic (3) Weight loss Current Visit: Yes Status: Acute (4) Nicotine dependence Current Visit: Yes Status: Acute Qualifiers: Nicotine product type: cigarettes Substance use status: in withdrawal Qualified Code(s): F17.213 - Nicotine dependence, cigarettes, with withdrawal - AMA Did Patient Leave Against Medical Advice: No
== END 2018-06-01 08:53 | disposition home or self-care (01) | DRG 773 ==
LOC: YASAS 12:10 → Y3N 16:32
PROVIDERS: ADMIT Neuromusculoskeletal Medicine & OMM; ATTEND Neuromusculoskeletal Medicine & OMM
PROC: HZ2ZZZZ Detoxification Services for Substance Abuse Treatment (ICD-10-PCS; principal; 2018-05-28)
DX: F10.230 Alcohol dependence with withdrawal, uncomplicated (principal); F14.20 Cocaine dependence, uncomplicated; F11.20 Opioid dependence, uncomplicated; F12.10 Cannabis abuse, uncomplicated; F17.213 Nicotine dependence, cigarettes, with withdrawal; F32.9 Major depressive disorder, single episode, unspecified; R63.4 Abnormal weight loss; Z68.24 Body mass index [BMI] 24.0-24.9, adult; Z86.19 Personal history of other infectious and parasitic diseases
CPT/HCPCS: 36415; 80053; 81003; 85027; 86593